=== PATIENT | female | born 1990 | race Caucasian/White ===

== ENCOUNTER 2018-03-06 15:01 | Observation (INO) ==
[2018-03-06] MEDS ORDERED: IOPAMIDOL 100 ML BOTTLE IV ONE (15:02)
[2018-03-06] MEDS ORDERED: 0.9 % SODIUM CHLORIDE 1,000 ML IV ONE (15:08)
--- NOTE | 2018-03-06 15:28 | Emergency Department Note ---
Abdominal Pain HPI - General Chief Complaint: Abdominal Pain Stated Complaint: RLQ Abdominal Pain onset 529. Time Seen by Provider: 03/06/18 15:22 Source: patient Mode of arrival: ambulatory Limitations: no limitations - History of Present Illness HPI Narrative: 27-year-old female awoke this morning at 5:30 AM with right lower quadrant abdominal pain. Progressively getting worse since then. States it is worse with any movement, if she walks, or takes a deep breath. She has never had anything like this previously. She has nauseated. Tried to eat some lunch around 11:00 but could hardly eat. Her pain is a little bit better if she sits still or lays down. She presented to minor care but they were worried about appendicitis so they sent her to the ER. She has had a fever of 100 to 101 the last 7 or 8 hours since she woke up. No diarrhea. Last normal bowel movement was last night. No cough or cold symptoms. Denies pain anywhere else other than the right lower quadrant of the abdomen. Denies any dysuria or frequency. No vaginal drainage. - Related Data Home Medications Medication Instructions Recorded Confirmed omega-3 fatty acids 500 mg capsule 500 mg PO QDAY cap 02/23/15 03/06/18 Previous Rx's Medication Instructions Recorded nortriptyline 10 mg capsule 10 mg PO QHS #30 cap 11/01/15 levothyroxine 88 mcg tablet 88 mcg PO QDAY #30 tab 12/01/15 topiramate 25 mg tablet 50 mg PO BID #120 tab 04/05/16 cyclobenzaprine 5 mg tablet 10 mg PO HS #30 tab 09/05/17 Allergies Allergy/AdvReac Type Severity Reaction Status Date / Time leflunomide [From Arava] Allergy Unknown Nausea Verified 03/06/18 14:46 methotrexate Allergy Unknown Nausea Verified 03/06/18 14:46 Penicillins Allergy Unknown Hives Verified 03/06/18 14:46 Sulfa (Sulfonamide Allergy Unknown Rash Verified 03/06/18 14:46 Antibiotics) Review of Systems All systems ED: reviewed and negative except as stated. Abdominal Pain PMH - Past Medical History Medical history: Reports: other (Rheumatoid arthritis) Surgical history ED: Reports: orthopedic, other (2 foot surgeries), tonsillectomy - Social History Smoking status: Never smoker Alcohol use: Reports: Rarely Drug use: Reports: none Physical Exam Limitations: no limitations General appearance: alert, in no apparent distress Head: atraumatic, normocephalic, normal inspection Eye: Present: normal appearance. Absent: conjunctival injection ENT: mucous membranes moist Neck: Present: normal inspection, trachea midline. Absent: tenderness, lymphadenopathy Chest: Present: normal inspection, symmetric chest wall rise Respiratory: Present: normal lung sounds bilaterally. Absent: respiratory distress, wheezes, accessory muscle use Cardiovascular: Present: regular rate, normal heart sounds Abdominal: Present: soft, tenderness (RLQ and periumbilical), normal bowel sounds. Absent: distention, mass Extremities: Present: normal inspection Neurological: Present: alert, oriented X3, normal gait Psychiatric: Present: normal affect, normal mood Skin: Present: warm, dry, intact, normal color. Absent: rash, cyanosis, diaphoresis, erythema Course Course Narrative: At 1610 I did speak with Dr. Solis, surgeon on-call who is going to come see the patient. Vital Signs Temperature 100.0 F H 03/06/18 15:02 Pulse Rate 100 H 03/06/18 15:02 Respiratory Rate 18 03/06/18 15:02 Blood Pressure 135/92 03/06/18 15:02 Pulse Oximetry (%) 100 03/06/18 15:02 Temperature 100.0 F H 03/06/18 15:02 Pulse Rate 100 H 03/06/18 15:02 Respiratory Rate 18 03/06/18 15:02 Blood Pressure 135/92 03/06/18 15:02 Pulse Oximetry (%) 100 03/06/18 15:02 Abdominal Pain - Lab Data Result diagrams: 03/06/18 15:20 03/06/18 15:20 Lab Results 03/06/18 03/06/18 03/06/18 Range/Units 15:20 15:20 15:20 WBC 10.1 (4.5-11.0) K/mcL RBC 4.40 (4.00-5.20) M/mcL Hgb 12.6 (12.0-15.0) g/dL Hct 37.7 (36.0-48.0) % POC Hct 39.0 (36.0-48.0) % MCV 85.7 (80.0-100.0) fL MCH 28.7 (26.0-34.0) pg MCHC 33.6 (31.0-36.0) g/dL RDW 12.1 (11.5-14.5) % Plt Count 226 (140-440) K/mcL MPV 9.9 (7.4-10.4) fL Gran % 75.2 (38.0-78.0) % Lymph % (Auto) 22.1 (15.5-49.0) % [place] % (Auto) 0.4 L (1.0-12.0) % Eos % (Auto) 2.1 (0.0-7.0) % Baso % (Auto) 0.2 (0.0-2.0) % Gran # 7.6 (1.8-8.0) K/mcL Lymph # (Auto) 2.2 (1.5-4.8) K/mcL [place] # (Auto) 0 L (0.1-0.9) K/mcL Eos # (Auto) 0.2 (0.0-0.7) K/mcL Baso # (Auto) 0 (0.0-0.3) K/mcL VBG Lactic Acid 0.6 (0.5-2.2) mmol/L POC Sodium 141 (133-145) mmol/L Sodium 139 (133-145) mmol/L POC Potassium 3.4 (3.3-5.1) mmol/L Potassium 3.4 (3.3-5.1) mmol/L POC Chloride 106 (96-108) mmol/L Chloride 104 (96-108) mmol/L Carbon Dioxide 22 (22-30) mmol/L POC Total CO2 20 L (22-30) mmol/L Anion Gap 13.0 (8-16) POC BUN 9 (6-20) mg/dl BUN 10 (6-20) mg/dl Creatinine 0.9 (0.6-1.1) mg/dl POC Creatinine 0.8 (0.6-1.1) mg/dl GFR Calculation 88 Glucose 89 (70-105) mg/dL POC Glucose 90 (70-105) mg/dL Calcium 9.4 (8.6-10.4) mg/dl POC WB Ioniz Calcium 1.18 (1.16-1.32) mmol/L Total Bilirubin 0.3 (0.0-1.0) mg/dL AST 10 (0-37) U/l ALT 7 (0-40) U/l Alkaline Phosphatase 76 (39-117) U/L Total Protein 7.8 (5.9-8.4) gm/dL Albumin 4.3 (3.2-5.2) gm/dL Globulin 3.5 (2.2-3.7) gm/dL Albumin/Globulin Ratio 1.2 (1.0-2.3) Disposition Pt seen by MAINFRAME PROGRAMMER/PA only: Yes Clinical Impression: Appendicitis Disposition: Xfer As Inpt ([facility]) Condition: Fair Referrals: Kerry Mills ARNP [Primary Care Provider] - Michell Solis MD [Physician] - Time of Disposition: 16:13
[2018-03-06 15:51] LABS: Basophils # (Auto) 0 K/mcL (0.0-0.3); Basophils % (Auto) 0.2 % (0.0-2.0); Eosinophils # (Auto) 0.2 K/mcL (0.0-0.7); Eosinophils % (Auto) 2.1 % (0.0-7.0); Granulocytes % (Auto) 75.2 % (38.0-78.0); Lymphocytes # (Auto) 2.2 K/mcL (1.5-4.8); Lymphocytes % (Auto) 22.1 % (15.5-49.0); Mean Cell Volume 85.7 fL (80.0-100.0); Mean Corpuscular HGB Conc 33.6 g/dL (31.0-36.0); Mean Corpuscular Hemoglobin 28.7 pg (26.0-34.0); Monocytes # (Auto) 0 K/mcL (0.1-0.9); Monocytes % (Auto) 0.4 % (1.0-12.0); Platelet Count 226 K/mcL (140-440); Red Cell Distribution Width 12.1 % (11.5-14.5)
--- NOTE | 2018-03-06 16:06 | Cat Scan Report ---
CLINICAL INFORMATION: Right lower quadrant pain and fever COMPARISON: None. TECHNIQUE: Following enteric contrast, 80 cc of Isovue-300 were injected intravenously, and 60 seconds later, 0.625 mm helical slices were obtained from the mid heart through the subtrochanteric regions. Following reconstruction, 2.5 mm sagittal, coronal and axial reformatted images were processed and reviewed at bone, lung and soft tissue windows. Five minutes later, 0.625 mm helical slices were obtained from the mid heart through the kidneys and viewed at soft tissue windows.The exam was performed using radiation dose optimization techniques including, but not limited to, automated exposure control, adjustment of the mA and/or kV according to patient size and use of iterative reconstruction technique. FINDINGS: Lung bases show no abnormality - no effusion. Visualized heart is normal. Images through the abdomen show the gallbladder and bile ducts, liver, both kidneys, adrenal glands, spleen, pancreas and aorta, aortic branches be normal in size configuration and attenuation without focal lesion. Images should the pelvis show urinary bladder to be normal. Anteflexed uterus normal size 8 x 4 cm in IUD in proper positioned in the endometrial cavity. Both ovaries are normal the exception of a 2.4 cm simple cyst on the right ovary. The appendix is noted in the lateral pericecal region and is dilated with diameter 13 cm wall thickening and fluid in the periappendiceal fat. IMPRESSION: Acute appendicitis. Appendix is located in the lateral pericecal region. No abscess or complication Interpreted and Authenticated by: Austen Tilley 03/06/18
[2018-03-06 16:13] LABS: ALT/SGPT 7 U/l (0-40); Albumin 4.3 gm/dL (3.2-5.2); Albumin/Globulin Ratio 1.2 (1.0-2.3); Alkaline Phosphatase 76 U/L (39-117); Blood Urea Nitrogen 10 mg/dl (6-20)
[2018-03-06] MEDS ORDERED: ONDANSETRON 4 MG/2 ML VIAL IV ONE ×2 (16:19→17:55)
[2018-03-06] MEDS ORDERED: HYDROmorphone 2 MG/ML VIAL IV SCH (16:30)
[2018-03-06] MEDS ORDERED: ERTAPENEM 1 GM in 0.9 % SODIUM CHLORIDE 50 ML IV ONE (16:55)
[2018-03-06] MEDS ORDERED: 0.9 % SODIUM CHLORIDE 1,000 ML IV SCH (17:00)
--- NOTE | 2018-03-06 17:00 | General Surg History&Physical ---
History of Present Illness Patient information: Note initiated : 03/06/18 at 4:57 pm Service Date, if different from initiated Date: [] Patient: Eh Boyd a 27 y/o F admitted on for RLQ Abdominal Pain onset 529.. Chief Complaint: [Abdominal pain and nausea] HPI: Ms. Boyd is a 27 year old F was admitted with acute appendicitis. The patient had onset of sharp pain in right lower quadrant at 5:30 AM today. She developed increasing pain with bowel movement. She had nausea without vomiting. The pain continued throughout the day and she was finally seen in urgent care and referred to the emergency room. CT confirms acute appendicitis. Her white blood count is normal but she is on Remicade. Her last Remicade injection was 5 weeks ago. Review of Systems - Constitutional fatigue, weight gain - Gastrointestinal abdominal pain, heartburn, nausea - Musculoskeletal abnormal gait, arthralgias, joint swelling, myalgias, radiating pain into limb, stiffness - Psychiatric anxiety, depression - Hematologic/Lymphatic no easy bleeding, no easy bruising, no lymphadenopathy Past History Past medical history: Ankylosis spondylitis Hypertension Anxiety with depression Positive CECILE Past surgical history: Tonsillectomy Left foot surgery Bunionectomy Past family history: Depression Hypertension Brain neoplasm Carcinoma of cervix Diabetes mellitus Breast cancer Coronary artery disease Past social history: Negative tobacco Occasional alcohol use Denies drug use Employed Medications and Allergies Home Medications Medication Instructions Recorded Confirmed Type omega-3 fatty acids 500 mg capsule 500 mg PO QDAY cap 02/23/15 03/06/18 History nortriptyline 10 mg capsule 10 mg PO QHS #30 cap 11/01/15 03/06/18 Rx levothyroxine 88 mcg tablet 88 mcg PO QDAY #30 tab 12/01/15 03/06/18 Rx topiramate 25 mg tablet 50 mg PO BID #120 tab 04/05/16 03/06/18 Rx Allergies Allergy/AdvReac Type Severity Reaction Status Date / Time leflunomide [From Arava] Allergy Unknown Nausea Verified 03/06/18 14:46 methotrexate Allergy Unknown Nausea Verified 03/06/18 14:46 Penicillins Allergy Unknown Hives Verified 03/06/18 14:46 Sulfa (Sulfonamide Allergy Unknown Rash Verified 03/06/18 14:46 Antibiotics) Exam Temp Pulse Resp BP Pulse Ox 100.0 F H 89 13 135/92 100 03/06/18 15:02 03/06/18 16:15 03/06/18 16:15 03/06/18 16:15 03/06/18 16:15 - General physical appearance well developed, well nourished, moderate distress, obese - Eyes PERRL, normal ocular movement - ENT normal pinna, normal nares, normal mucosa, no hearing loss, no congestion - Head Head exam IM: Present: atraumatic, normocephalic - Neck no masses, no bruits, trachea midline, no lymphadectomy, no venous distension - Cardiovascular Cardiovascular exam IM: Present: normal rate and rhythm, RRR, +S1, +S2. Absent : gallop, JVD, systolic murmur, tachycardia - Respiratory normal expansion, normal respiratory effort, clear to percussion, clear to auscultation - Abdomen Abdomen: Present: soft, non tender, tender (right lower quadrant tenderness with active bowel sounds; no palpable mass), bowel sounds Hernia: Present: none - Genitourinary Present: normal external genitalia - Integumentary Present: no rash, no growths, no abnormal pigmentation - Neurologic Present: normal coordination, normal sensation - Musculoskeletal Present: normal gait, normal posture, other (exquisite tenderness with swelling left ankle and foot) - Psychiatric Present: oriented to time, oriented to person, oriented to place, speech is normal, memory intact Assessment and Plan (1) Acute appendicitis Status: Acute (2) Depressive disorder Patient counseled for laparoscopic appendectomy and it will be done later today. Preoperative Invanz has been ordered Status: Chronic Comment: 2011 Mild (3) Hypertension, essential Status: Chronic Comment: PIH during in 2011 (4) Hypothyroidism (acquired) Status: Chronic
[2018-03-06] MEDS ORDERED: SUCCINYLCHOLINE 20 MG/ML ML IV ONE (17:55)
[2018-03-06] MEDS ORDERED: PROPOFOL 200 MG/20 ML VIAL IV ONE (17:55)
[2018-03-06] MEDS ORDERED: GLYCOPYRROLATE 0.2 MG/ML VIAL IV ONE (17:55)
[2018-03-06] MEDS ORDERED: NEOSTIGMINE 1 MG/ML VIAL IV ONE (17:55)
[2018-03-06] MEDS ORDERED: LIDOCAINE HCL/PF 100 MG/5 ML SYRINGE IV ONE (17:55)
[2018-03-06] MEDS ORDERED: ROCURONIUM 10 MG/ML ML IV ONE (17:55)
[2018-03-06] MEDS ORDERED: fentaNYL 250 MCG/5 ML VIAL IV ONE (17:55)
[2018-03-06] MEDS ORDERED: KETAMINE 100 MG/ML ML IV ONE (17:55)
[2018-03-06] MEDS ORDERED: KETOROLAC 30 MG/ML VIAL IV ONE (17:55)
[2018-03-06] MEDS ORDERED: DEXAMETHASONE 10 MG/ML VIAL IV ONE (17:55)
[2018-03-06] MEDS ORDERED: MIDAZOLAM 2 MG/2 ML VIAL IV ONE (17:55)
[2018-03-06] MEDS ORDERED: BENZOCAINE/MENTHOL 1 LOZENGE PO PRN (18:41)
[2018-03-06] MEDS ORDERED: METHOCARBAMOL 1,000 MG/10 ML VIAL IV PRN (18:41)
[2018-03-06] MEDS ORDERED: MEPERIDINE 25 MG/ML SYRINGE IV PRN (18:41)
[2018-03-06] MEDS ORDERED: LACTATED RINGERS 250 ML IV PRN (18:41)
[2018-03-06] MEDS ORDERED: FLUMAZENIL 0.1 MG/ML ML IV PRN (18:41)
[2018-03-06] MEDS ORDERED: PROMETHAZINE 25 MG/ML VIAL IM PRN (18:41)
[2018-03-06] MEDS ORDERED: fentaNYL 100 MCG/2 ML VIAL IV PRN (18:41)
[2018-03-06] MEDS ORDERED: NALOXONE HCL 0.4 MG/ML VIAL IV PRN (18:41)
[2018-03-06] MEDS ORDERED: HYDROmorphone 2 MG/ML VIAL IV PRN (18:41)
[2018-03-06] MEDS ORDERED: ACETAMINOPHEN 1,000 MG/100 ML BOTTLE IV ONE (18:41)
[2018-03-06] MEDS ORDERED: ONDANSETRON 4 MG/2 ML VIAL IV PRN (18:41)
[2018-03-06] MEDS ORDERED: MEPERIDINE 50 MG/ML INJECTION IM PRN (18:41)
[2018-03-06] MEDS ORDERED: IPRATROPIUM/ALBUTEROL 3 ML AMPUL.NEB NEB PRN (18:41)
[2018-03-06] MEDS ORDERED: PROMETHAZINE 25 MG/ML VIAL IV PRN (18:41)
--- NOTE | 2018-03-06 18:43 | Brief Operative Note ---
Date of procedure: 03/06/18 Pre-op diagnosis: acute appendicitis Post-op diagnosis: other (acute appendicitis) Procedure: laparoscopic appendectomy Grafts/Implants: No Anesthesia: GETA Findings: acute suppurative appendicitis Complications: none Surgeon: Michell Solis Estimated blood loss (cc): 5 Specimens Removed/Pathology: other (appendix) Condition: stable Disposition: PACU
[2018-03-06] MEDS ORDERED: LACTATED RINGERS 1,000 ML IV SCH (18:45)
[2018-03-06] MEDS: 0.9 % SODIUM CHLORIDE 1,000 ML IV SCH ×2 (19:22→20:11)
[2018-03-06] MEDS: 0.9 % SODIUM CHLORIDE 10 ML SYRINGE IV SCH (20:08)
[2018-03-06] MEDS: NORTRIPTYLINE 10 MG CAPSULE PO SCH (20:32)
[2018-03-06] MEDS: TOPIRAMATE 25 MG TABLET PO SCH (20:32)
[2018-03-06] MEDS: HYDROmorphone 2 MG/ML VIAL IV PRN (22:12)
[2018-03-07] MEDS: HYDROmorphone 2 MG/ML VIAL IV PRN ×4 (02:39→20:18)
[2018-03-07] MEDS: ONDANSETRON 4 MG/2 ML VIAL IV PRN ×2 (02:39→09:06)
[2018-03-07] MEDS: ACETAMINOPHEN 1,000 MG/100 ML BOTTLE IV PRN ×3 (02:42→15:43)
[2018-03-07] MEDS: 0.9 % SODIUM CHLORIDE 10 ML SYRINGE IV SCH ×3 (05:08→22:18)
[2018-03-07 05:39] LABS: Basophils # (Auto) 0 K/mcL (0.0-0.3); Basophils % (Auto) 0.1 % (0.0-2.0); Eosinophils # (Auto) 0 K/mcL (0.0-0.7); Eosinophils % (Auto) 0.1 % (0.0-7.0); Granulocytes % (Auto) 90.5 % (38.0-78.0); Lymphocytes # (Auto) 0.7 K/mcL (1.5-4.8); Lymphocytes % (Auto) 9.2 % (15.5-49.0); Mean Cell Volume 85.5 fL (80.0-100.0); Mean Corpuscular HGB Conc 34.8 g/dL (31.0-36.0); Mean Corpuscular Hemoglobin 29.8 pg (26.0-34.0); Monocytes # (Auto) 0 K/mcL (0.1-0.9); Monocytes % (Auto) 0.1 % (1.0-12.0); Platelet Count 206 K/mcL (140-440); RBC 3.17 M/mcL (4.00-5.20); Red Cell Distribution Width 12.1 % (11.5-14.5)
--- NOTE | 2018-03-07 07:14 | Operative Note ---
DATE OF OPERATION: 03/06/2018 PREOPERATIVE DIAGNOSIS: Acute appendicitis. POSTOPERATIVE DIAGNOSIS: Acute appendicitis. PROCEDURE: Laparoscopic appendectomy. SURGEON: Michell Solis MD FINDINGS: Acute suppurative appendicitis. DESCRIPTION OF PROCEDURE: Under general anesthesia, the patient's abdomen was prepped and draped in the sterile field. A time-out procedure was carried out as per protocol. Supraumbilical incision was made and Veress needle was inserted. After adequate positioning, the abdomen was insufflated with 3 liters of CO2. A 12 mm port was placed. Laparoscope was placed. Under videoscopic guidance, a 5 mm port was placed in the suprapubic midline and a 12 mm port was placed in the left lower quadrant. The patient was placed in deep Trendelenburg position and rotated to the left. At the base of the cecum suppurative inflamed appendix was noted. The appendix was grasped with a self-retaining grasper. There was minimal mesoappendix so the appendix and mesoappendix were transected using the Endo-ADRIAN stapler and a single fire. The appendix was placed in an EndoCatch device and retrieved. There was no bleeding. Irrigating fluid was clear. CO2 was allowed to escape from the abdomen and the ports were removed. Fascia at the umbilicus was closed with interrupted 0 Vicryl. Skin incisions were closed with geo. Tegaderm dressings were placed. The patient was awakened from anesthesia uneventfully, transferred to a bed and taken to the postanesthetic care unit in stable, satisfactory condition. LCS:harshad Job ID: [id number] Doc ID: [id number] Michell Solis M.D.
[2018-03-07] MEDS: PANTOPRAZOLE 40 MG VIAL IV SCH ×2 (07:23→17:01)
[2018-03-07] MEDS: TOPIRAMATE 25 MG TABLET PO SCH ×2 (09:07→20:24)
[2018-03-07] MEDS: LEVOTHYROXINE 88 MCG TABLET PO SCH (09:07)
[2018-03-07] MEDS: 0.9 % SODIUM CHLORIDE 1,000 ML IV SCH ×2 (09:25→22:17)
[2018-03-07] MEDS ORDERED: PROMETHAZINE 25 MG/ML VIAL IV PRN (12:14)
--- NOTE | 2018-03-07 13:31 | XRay Report ---
CLINICAL INFORMATION: Postop appendicitis - abdominal pain COMPARISON: Abdomen and pelvic CT - 03/06/2018. FINDINGS: Mild ileus pattern is noted. Small amounts of free air noted in the subdiaphragmatic regions and throughout the peritoneal cavity - as expected in the immediate postoperative period. No soft tissue mass, pathologic calcification or organomegaly. IUD in expected location in the true pelvis IMPRESSION: Mild ileus and small amounts of free air - as expected immediate postoperative period Interpreted and Authenticated by: Austen Tilley 03/07/18
--- NOTE | 2018-03-07 16:02 | General Surgery Progress Note ---
Subjective Patient reports: still having pain, no flatus, no bowel movement, nausea, vomiting, afebrile Narrative: Note initiated : 03/07/18 at 3:58 pm Service Date, if different from initiated Date: [] Patient: Eh Boyd 27 y/o F admitted on for RLQ Abdominal Pain onset 529.. Chief Complaint: [Patient states that she has had some bilateral shoulder pain and mid abdominal pain. She has also had some nausea with vomiting. She has not had flatus or bowel movement. She has been afebrile and she has not had tachycardia. Pulse rate average is about 80 ;white blood count is 8.1. Abdominal x-ray shows subphrenic air which is anticipated on the first postoperative day post laparoscopy. Her antibiotic was switched from Zofran to promethazine and her nausea is improved. It has been decided that she will be observed overnight since she has not been able to keep liquids down.] Objective Temp Pulse Resp BP Pulse Ox 98.2 F 76 9 L 120/66 100 03/07/18 12:00 03/07/18 13:48 03/07/18 13:48 03/07/18 13:48 03/07/18 13:48 - Additional Data Intake & Output - Last 24 hours: Intake & Output 03/05/18 03/06/18 03/07/18 03/08/18 05:59 05:59 05:59 05:59 Intake Total 2950 / 2950 1092 / 1092 Output Total 910 / 910 1075 / 1075 Balance 2039 / 2039 Weight 198 lb - General physical appearance well developed, well nourished, moderate distress, severe distress, moderate pain, obese - Eyes PERRL, normal ocular movement - ENT normal pinna, normal nares, normal mucosa, no hearing loss, no congestion - Neck no masses, no bruits, trachea midline, no lymphadectomy, no venous distension - Respiratory normal expansion, normal respiratory effort, clear to percussion, clear to auscultation - Cardiovascular Cardiovascular exam: Present: normal rate and rhythm, RRR, +S1, +S2. Absent: JVD, tachycardia - Abdomen tender (tenderness around the operative sites in the lower abdomen; hypoactive bowel sounds; no abdominal distention) - Integumentary no rash, no growths, no abnormal pigmentation - Neurologic normal coordination, normal sensation - Musculoskeletal normal gait, normal posture - Psychiatric oriented to time, oriented to person, oriented to place, speech is normal, memory intact - Labs 03/07/18 04:46 03/06/18 15:20 Diabetes panel 03/06/18 Range/Units 15:20 Sodium 139 (133-145) mmol/L Potassium 3.4 (3.3-5.1) mmol/L Chloride 104 (96-108) mmol/L Carbon Dioxide 22 (22-30) mmol/L BUN 10 (6-20) mg/dl Creatinine 0.9 (0.6-1.1) mg/dl Glucose 89 (70-105) mg/dL Calcium 9.4 (8.6-10.4) mg/dl AST 10 (0-37) U/l ALT 7 (0-40) U/l Alkaline Phosphatase 76 (39-117) U/L Total Protein 7.8 (5.9-8.4) gm/dL Albumin 4.3 (3.2-5.2) gm/dL Calcium panel 03/06/18 Range/Units 15:20 Calcium 9.4 (8.6-10.4) mg/dl Albumin 4.3 (3.2-5.2) gm/dL Pituitary panel 03/06/18 Range/Units 15:20 Sodium 139 (133-145) mmol/L Potassium 3.4 (3.3-5.1) mmol/L Chloride 104 (96-108) mmol/L Carbon Dioxide 22 (22-30) mmol/L BUN 10 (6-20) mg/dl Creatinine 0.9 (0.6-1.1) mg/dl Glucose 89 (70-105) mg/dL Calcium 9.4 (8.6-10.4) mg/dl Adrenal panel 03/06/18 Range/Units 15:20 Sodium 139 (133-145) mmol/L Potassium 3.4 (3.3-5.1) mmol/L Chloride 104 (96-108) mmol/L Carbon Dioxide 22 (22-30) mmol/L BUN 10 (6-20) mg/dl Creatinine 0.9 (0.6-1.1) mg/dl Glucose 89 (70-105) mg/dL Calcium 9.4 (8.6-10.4) mg/dl Total Bilirubin 0.3 (0.0-1.0) mg/dL AST 10 (0-37) U/l ALT 7 (0-40) U/l Alkaline Phosphatase 76 (39-117) U/L Total Protein 7.8 (5.9-8.4) gm/dL Albumin 4.3 (3.2-5.2) gm/dL Assessment and Plan (1) Acute appendicitis Status: Acute Assessment and plan: Stable except for postoperative ileus with nausea and vomiting Continue on observation status until tomorrow Current Visit: Yes (2) Depressive disorder Problem details: 2011 Mild Status: Chronic Current Visit: No (3) Hypertension, essential Problem details: PIH during in 2012 Status: Chronic Current Visit : No (4) Hypothyroidism (acquired) Status: Chronic Current Visit: No - Time Spent With Patient Total time spent is greater than 50% in coordination of care (as documented) at patient's floor/unit and/or counseling patient:
[2018-03-07] MEDS ORDERED: MEPERIDINE 25 MG/ML SYRINGE IV PRN (16:07)
[2018-03-07] MEDS ORDERED: ERTAPENEM 1 GM VIAL IM SCH (16:15)
[2018-03-07] MEDS: ERTAPENEM 1 GM in 0.9 % SODIUM CHLORIDE 50 ML IV SCH (17:01)
[2018-03-07] MEDS: NORTRIPTYLINE 10 MG CAPSULE PO SCH (20:20)
[2018-03-08] MEDS: 0.9 % SODIUM CHLORIDE 1,000 ML IV SCH ×3 (02:21→16:30)
[2018-03-08] MEDS: 0.9 % SODIUM CHLORIDE 10 ML SYRINGE IV SCH ×3 (04:36→21:05)
[2018-03-08 06:41] LABS: Basophils # (Auto) 0 K/mcL (0.0-0.3); Basophils % (Auto) 0.5 % (0.0-2.0); Eosinophils # (Auto) 0.1 K/mcL (0.0-0.7); Eosinophils % (Auto) 1.8 % (0.0-7.0); Granulocytes % (Auto) 57.3 % (38.0-78.0); Lymphocytes # (Auto) 2.3 K/mcL (1.5-4.8); Mean Cell Volume 86.4 fL (80.0-100.0); Mean Corpuscular HGB Conc 34.3 g/dL (31.0-36.0); Mean Corpuscular Hemoglobin 29.6 pg (26.0-34.0); Monocytes # (Auto) 0 K/mcL (0.1-0.9); Monocytes % (Auto) 0.4 % (1.0-12.0); Platelet Count 165 K/mcL (140-440); RBC 2.65 M/mcL (4.00-5.20); Red Cell Distribution Width 12.6 % (11.5-14.5)
[2018-03-08] MEDS: PANTOPRAZOLE 40 MG VIAL IV SCH ×2 (07:37→16:36)
[2018-03-08] MEDS: LEVOTHYROXINE 88 MCG TABLET PO SCH (07:38)
[2018-03-08 07:56] LABS: ALT/SGPT < 5 U/l (0-40); Albumin 3.1 gm/dL (3.2-5.2); Albumin/Globulin Ratio 1.3 (1.0-2.3); Alkaline Phosphatase 52 U/L (39-117); Bilirubin,Direct < 0.2 mg/dL (0.0-0.3); Blood Urea Nitrogen 9 mg/dl (6-20); Gamma Glutamyl Transpeptidase 8 U/L (5-36); Uric Acid 4.6 mg/dL (2.5-8.0)
[2018-03-08] MEDS: ACETAMINOPHEN 1,000 MG/100 ML BOTTLE IV PRN (07:58)
[2018-03-08] MEDS: TOPIRAMATE 25 MG TABLET PO SCH ×2 (08:25→20:21)
[2018-03-08] MEDS: ERTAPENEM 1 GM in 0.9 % SODIUM CHLORIDE 50 ML IV SCH (08:26)
[2018-03-08] MEDS ORDERED: oxyCODONE/APAP 5/325MG TABLET PO PRN (09:45)
[2018-03-08] MEDS ORDERED: 0.9 % SODIUM CHLORIDE 250 ML IV SCH ×2 (10:00→14:52)
[2018-03-08 10:52] LABS: Basophils # (Auto) 0 K/mcL (0.0-0.3); Basophils % (Auto) 0.5 % (0.0-2.0); Eosinophils # (Auto) 0.1 K/mcL (0.0-0.7); Eosinophils % (Auto) 2.1 % (0.0-7.0); Granulocytes % (Auto) 59.9 % (38.0-78.0); Lymphocytes # (Auto) 2.1 K/mcL (1.5-4.8); Lymphocytes % (Auto) 37.1 % (15.5-49.0); Mean Cell Volume 86.2 fL (80.0-100.0); Mean Corpuscular HGB Conc 34.2 g/dL (31.0-36.0); Mean Corpuscular Hemoglobin 29.5 pg (26.0-34.0); Monocytes # (Auto) 0 K/mcL (0.1-0.9); Monocytes % (Auto) 0.4 % (1.0-12.0); Platelet Count 179 K/mcL (140-440); RBC 2.77 M/mcL (4.00-5.20); Red Cell Distribution Width 12.4 % (11.5-14.5)
--- NOTE | 2018-03-08 11:25 | Cat Scan Report ---
CLINICAL INFORMATION: Two days postop appendectomy. Decreasing hemoglobin. COMPARISON: Preoperative abdomen and pelvic CT - 03/06/2018. TECHNIQUE: Following enteric contrast, 80 cc of Isovue-300 were injected intravenously, and 60 seconds later, 0.625 mm helical slices were obtained from the mid heart through the subtrochanteric regions. Following reconstruction, 2.5 mm sagittal, coronal and axial reformatted images were processed and reviewed at bone, lung and soft tissue windows. Five minutes later, 0.625 mm helical slices were obtained from the mid heart through the kidneys and viewed at soft tissue windows.The exam was performed using radiation dose optimization techniques including, but not limited to, automated exposure control, adjustment of the mA and/or kV according to patient size and use of iterative reconstruction technique. FINDINGS: Lung bases show small bilateral pleural effusions and mild bibasilar subsegmental atelectasis. The visualized heart is normal. Images through the abdomen show the gallbladder and bile ducts, liver, both kidneys, adrenal glands, spleen, pancreas and aorta, including aortic branches, are normal in size configuration, and attenuation without focal lesion. Images through the pelvis show the uterus appears normal in size configuration. Both ovaries are normal. Urinary bladder is unremarkable. There is a moderate free intraperitoneal air within the abdomen and pelvis, as expected, in the immediate postoperative period. Moderate acute hematoma, spanning 20 x 5 cm, is seen in the lateral pericecal region. This measures 60 Hounsfield units. Moderate free intraperitoneal fluid, compatible with hemorrhage admixed with simple fluid, is seen in the perisplenic, perihepatic and pelvic regions. Bone windows show no osseous abnormality. IMPRESSION: 1. 20 x 5 cm hematoma in the lateral pericecal region. There is also moderate mixed hemoperitoneum with simple fluid within the upper abdomen and pelvis. Case discussed with Dr. Solis - patient will return to the OR 2. Moderate intraperitoneal gas - as expected in the immediate postoperative period 3. Small bilateral pleural effusions and minor bibasilar atelectasis. Interpreted and Authenticated by: Austen Tilley 03/08/18
[2018-03-08] MEDS ORDERED: PROPOFOL 200 MG/20 ML VIAL IV ONE (12:15)
[2018-03-08] MEDS ORDERED: GLYCOPYRROLATE 0.2 MG/ML VIAL IV ONE (12:15)
[2018-03-08] MEDS ORDERED: LIDOCAINE HCL/PF 100 MG/5 ML SYRINGE IV ONE (12:15)
[2018-03-08] MEDS ORDERED: fentaNYL 250 MCG/5 ML VIAL IV ONE (12:15)
[2018-03-08] MEDS ORDERED: MIDAZOLAM 5 MG/5 ML VIAL ONE (12:15)
[2018-03-08] MEDS ORDERED: DEXAMETHASONE 10 MG/ML VIAL ONE (12:15)
[2018-03-08] MEDS ORDERED: ONDANSETRON 4 MG/2 ML VIAL ONE (12:15)
[2018-03-08] MEDS ORDERED: NEOSTIGMINE 1 MG/ML VIAL ONE (12:15)
[2018-03-08] MEDS ORDERED: ACETAMINOPHEN 1,000 MG/100 ML BOTTLE IV ONE (13:12)
[2018-03-08] MEDS ORDERED: NALOXONE HCL 0.4 MG/ML VIAL IV PRN (13:12)
[2018-03-08] MEDS ORDERED: FLUMAZENIL 0.1 MG/ML ML IV PRN (13:12)
[2018-03-08] MEDS ORDERED: PROMETHAZINE 25 MG/ML VIAL IV PRN ×2 (13:12→14:52)
[2018-03-08] MEDS ORDERED: HYDROmorphone 2 MG/ML VIAL IV PRN (13:12)
[2018-03-08] MEDS ORDERED: ONDANSETRON 4 MG/2 ML VIAL IV PRN (13:12)
[2018-03-08] MEDS ORDERED: BENZOCAINE/MENTHOL 1 LOZENGE PO PRN (13:12)
[2018-03-08] MEDS ORDERED: fentaNYL 100 MCG/2 ML VIAL IV PRN (13:12)
[2018-03-08] MEDS ORDERED: diphenhydrAMINE 50 MG/ML VIAL IV PRN (13:12)
[2018-03-08] MEDS ORDERED: LACTATED RINGERS 250 ML IV PRN (13:12)
[2018-03-08] MEDS ORDERED: IPRATROPIUM/ALBUTEROL 3 ML AMPUL.NEB NEB PRN (13:12)
[2018-03-08] MEDS ORDERED: LACTATED RINGERS 1,000 ML IV SCH (13:15)
--- NOTE | 2018-03-08 13:39 | General Surgery Progress Note ---
Subjective Narrative: Note initiated : 03/08/18 at 1:39 pm Service Date, if different from initiated Date: [] Patient: Eh Boyd 27 y/o F admitted on for RLQ Abdominal Pain onset 529.. Chief Complaint: [] Objective Temp Pulse Resp BP Pulse Ox 98.1 F 88 14 126/80 100 03/08/18 10:58 03/08/18 10:58 03/08/18 10:58 03/08/18 10:58 03/08/18 10:58 - Additional Data Intake & Output - Last 24 hours: Intake & Output 03/06/18 03/07/18 03/08/18 03/09/18 05:59 05:59 05:59 05:59 Intake Total 2950 / 2950 3092 / 3092 100 / 100 Output Total 910 / 910 1770 / 1770 1500 / 1500 Balance 2040 / 2040 1322 / 1322 -1400 / -1400 Weight 198 lb - Labs 03/08/18 10:01 03/08/18 04:54 Diabetes panel 03/08/18 Range/Units 04:54 Sodium 141 (133-145) mmol/L Potassium 3.4 (3.3-5.1) mmol/L Chloride 109 H (96-108) mmol/L Carbon Dioxide 21 L (22-30) mmol/L BUN 9 (6-20) mg/dl Creatinine 0.6 (0.6-1.1) mg/dl Glucose 80 (70-105) mg/dL Calcium 8.2 L (8.6-10.4) mg/dl AST 8 (0-37) U/l ALT < 5 (0-40) U/l Alkaline Phosphatase 52 (39-117) U/L Total Protein 5.5 L (5.9-8.4) gm/dL Albumin 3.1 L (3.2-5.2) gm/dL Triglycerides 62 (<150) mg/dl Calcium panel 03/08/18 Range/Units 04:54 Calcium 8.2 L (8.6-10.4) mg/dl Phosphorus 2.2 L (2.7-4.5) mg/dL Albumin 3.1 L (3.2-5.2) gm/dL Pituitary panel 03/08/18 Range/Units 04:54 Sodium 141 (133-145) mmol/L Potassium 3.4 (3.3-5.1) mmol/L Chloride 109 H (96-108) mmol/L Carbon Dioxide 21 L (22-30) mmol/L BUN 9 (6-20) mg/dl Creatinine 0.6 (0.6-1.1) mg/dl Glucose 80 (70-105) mg/dL Calcium 8.2 L (8.6-10.4) mg/dl Adrenal panel 03/08/18 Range/Units 04:54 Sodium 141 (133-145) mmol/L Potassium 3.4 (3.3-5.1) mmol/L Chloride 109 H (96-108) mmol/L Carbon Dioxide 21 L (22-30) mmol/L BUN 9 (6-20) mg/dl Creatinine 0.6 (0.6-1.1) mg/dl Glucose 80 (70-105) mg/dL Calcium 8.2 L (8.6-10.4) mg/dl Total Bilirubin 0.2 (0.0-1.0) mg/dL AST 8 (0-37) U/l ALT < 5 (0-40) U/l Alkaline Phosphatase 52 (39-117) U/L Total Protein 5.5 L (5.9-8.4) gm/dL Albumin 3.1 L (3.2-5.2) gm/dL Assessment and Plan (1) Acute appendicitis Status: Acute Assessment and plan: Stable except for postoperative ileus with nausea and vomiting Continue on observation status until tomorrow Current Visit: Yes (2) Depressive disorder Problem details: 2011 Mild Status: Chronic Current Visit: No (3) Hypertension, essential Problem details: PIH during in 2011 Status: Chronic Current Visit : No (4) Hypothyroidism (acquired) Status: Chronic Current Visit: No - Time Spent With Patient Total time spent is greater than 50% in coordination of care (as documented) at patient's floor/unit and/or counseling patient:
--- NOTE | 2018-03-08 13:42 | Brief Operative Note ---
Date of procedure: 03/08/18 Pre-op diagnosis: post operative bleeding Post-op diagnosis: other (bleeding from staple line of mesoappendix) Procedure: exploratory laparotomy and control of bleeding from mesoappendix Grafts/Implants: No Anesthesia: GETA Findings: bLEEDING FROM STAPLE LINE OF MESOAPPENDIX Complications: none Surgeon: Michell Solis Estimated blood loss (cc): 20 Specimens Removed/Pathology: none sent Condition: stable Disposition: PACU
[2018-03-08] MEDS: MEPERIDINE 25 MG/ML SYRINGE IV PRN ×2 (14:06→14:08)
--- NOTE | 2018-03-08 14:36 | Surgical Pathology Report ---
HISTOLOGY SPECIMEN MICROSCOPIC DIAGNOSIS APPENDIX, APPENDECTOMY: -- ACUTE APPENDICITIS WITH SEROSITIS. (EBD:djf) PROCEDURAL IMPRESSION Appendicitis. GROSS DESCRIPTION Received in formalin labeled with the patient information, is a 4.7 cm long by up to 1.2 cm in diameter pale pink-hunter appendix with 1.3 cm of attached yellow-hunter adipose tissue. There is a thickened white-hunter possible exudate throughout the surface. The margin is stapled closed and the staple line continues approximately 1.2 cm into the attached fat. The lumen is pinpoint. Grossly no perforations are identified. Thaw Shed Heater Tender sections submitted - one cassette. (STS:sln) Electronically Signed by: Tasha Gates M.D.
[2018-03-08] MEDS ORDERED: ACETAMINOPHEN 1,000 MG/100 ML BOTTLE IV PRN (14:52)
[2018-03-08] MEDS ORDERED: MEPERIDINE 25 MG/ML SYRINGE IV PRN (14:52)
[2018-03-08] MEDS: HYDROmorphone 2 MG/ML VIAL IV PRN ×2 (16:26→19:04)
[2018-03-08] MEDS: oxyCODONE/APAP 5/325MG TABLET PO PRN (19:05)
[2018-03-08] MEDS ORDERED: NORTRIPTYLINE 10 MG CAPSULE PO SCH (21:00)
[2018-03-09] MEDS: oxyCODONE/APAP 5/325MG TABLET PO PRN ×2 (03:24→09:10)
[2018-03-09] MEDS: HYDROmorphone 2 MG/ML VIAL IV PRN (04:50)
[2018-03-09] MEDS: 0.9 % SODIUM CHLORIDE 10 ML SYRINGE IV SCH (04:51)
[2018-03-09] MEDS: 0.9 % SODIUM CHLORIDE 1,000 ML IV SCH (05:18)
[2018-03-09 06:49] LABS: ALT/SGPT < 5 U/l (0-40); Albumin 3.3 gm/dL (3.2-5.2); Albumin/Globulin Ratio 1.1 (1.0-2.3); Alkaline Phosphatase 58 U/L (39-117); Bilirubin,Direct < 0.2 mg/dL (0.0-0.3); Blood Urea Nitrogen 5 mg/dl (6-20); Gamma Glutamyl Transpeptidase 10 U/L (5-36); Uric Acid 4.7 mg/dL (2.5-8.0)
[2018-03-09 06:50] LABS: Basophils # (Auto) 0 K/mcL (0.0-0.3); Basophils % (Auto) 0.2 % (0.0-2.0); Eosinophils # (Auto) 0 K/mcL (0.0-0.7); Eosinophils % (Auto) 0.2 % (0.0-7.0); Granulocytes % (Auto) 81.7 % (38.0-78.0); Lymphocytes # (Auto) 1.6 K/mcL (1.5-4.8); Lymphocytes % (Auto) 17.4 % (15.5-49.0); Mean Cell Volume 86.6 fL (80.0-100.0); Mean Corpuscular HGB Conc 34.3 g/dL (31.0-36.0); Mean Corpuscular Hemoglobin 29.7 pg (26.0-34.0); Monocytes # (Auto) 0 K/mcL (0.1-0.9); Monocytes % (Auto) 0.5 % (1.0-12.0); Platelet Count 182 K/mcL (140-440); RBC 2.91 M/mcL (4.00-5.20); Red Cell Distribution Width 12.1 % (11.5-14.5)
[2018-03-09] MEDS: PANTOPRAZOLE 40 MG VIAL IV SCH (07:00)
[2018-03-09] MEDS ORDERED: LEVOTHYROXINE 88 MCG TABLET PO SCH (07:30)
[2018-03-09] MEDS ORDERED: ERTAPENEM 1 GM in 0.9 % SODIUM CHLORIDE 50 ML IV SCH (09:00)
[2018-03-09] MEDS: TOPIRAMATE 25 MG TABLET PO SCH (09:06)
--- NOTE | 2018-03-09 12:18 | Discharge Summary ---
Providers - Providers Patient information: Note initiated : 03/09/18 at 12:14 pm Service Date, if different from initiated Date: [] Patient: Eh Boyd 27 y/o F admitted on 03/07/18 for RLQ Abdominal Pain onset 529.. Chief Complaint: [] Date of admission: 03/06/18 Discharge date: 03/09/18 Attending physician: Michell Solis Hospitalization Hospital course: 27-year-old female admitted on 06 March with right-sided abdominal pain with nausea and vomiting. She was seen and CT revealed acute appendicitis. She was admitted and underwent laparoscopic appendectomy on 06 March. Surgery went uneventfully however wanted to this was noted that her hemoglobin was found 9.4. She also had evidence of mild ileus with bilateral shoulder pain. Plain films only shown subphrenic area which was anticipated after the laparoscopic surgery. On the morning of 08 March hemoglobin 7.[address] was done which showed a large pericecal hematoma with fluid over the liver. An urgent laparotomy was done and she was found to have a large hematoma at the base of the cecum with a visible pulsatile small bleeder in the mesoappendix with the staple line was disrupted. The staple across the appendix was intact. The hematoma was evacuated and the area was irrigated. The vessel was oversewn and the entire mesoappendix was oversewn for assurance. The drain was placed and she had only 40 cc of drainage over the past 12 hours. Her hemoglobin is 8.6 and the patient feels well. She is tolerating a diet and her pain is controlled with oral medications. She is therefore discharged home and will have follow-up in the office in 2 weeks. Discharge diagnosis: acute appendicitis Secondary discharge diagnosis: Postoperative bleeding Postoperative hemorrhagic anemia Reason for admission: abdominal pain nausea and vomiting Procedures: 06 March-- LAPAROSCOPIC appendectomy 08 March-- EXPLORATORY laparotomy with oversewing of bleeder in meso-appendix Pertinent studies/significant findings: CT of abdomen and pelvis with IV contrast Complications: Disruption of staple line of the mesoappendix with bleeding Exam Temp Pulse Resp BP Pulse Ox 98.7 F 93 H 16 118/74 98 03/09/18 12:07 03/09/18 12:07 03/09/18 12:07 03/09/18 12:03/09/18 12:07 - General physical appearance well developed, well nourished, no distress - Eyes PERRL, normal ocular movement - ENT normal pinna, normal nares, normal mucosa, no hearing loss, no congestion - Head Head exam IM: Present: atraumatic, normocephalic - Neck no masses, no bruits, trachea midline, no lymphadectomy, no venous distension - Cardiovascular Cardiovascular exam IM: Present: normal rate and rhythm - Respiratory normal expansion, normal respiratory effort, clear to percussion, clear to auscultation - Abdomen Abdomen: Present: soft, tender (mild tenderness around lower midline incision and port sites), bowel sounds Hernia: Present: none - Genitourinary Present: normal external genitalia - Integumentary Present: no rash, no growths, no abnormal pigmentation - Neurologic Present: normal coordination, normal sensation - Musculoskeletal Present: normal gait, normal posture - Psychiatric Present: oriented to time, oriented to person, oriented to place, speech is normal, memory intact Discharge Plan - Patient/Caregiver Discharge Instructions Activity: increase activity as tolerated Diet: Regular Diet Additional Instructions: Leave dressing intact until follow-up appointment. You may shower starting tomorrow. Do not use soap, lotion, or cream over the top of the dressing. Let water run over dressings, but do not scrub. Pat dry. Empty canister of drain once daily and recharge - Follow up Plan Follow up with: Michell Solis MD [Physician] - Kerry Mills ARNP [Primary Care Provider] - Disposition: Home, Self-Care Prognosis: Good Rehab Potential: Good I certify that the patient requires SNF services.: No Overall status at discharge: patient is not back to baseline Pending Studies Resuscitation Status Full Code Diet Regular Diet Start Sat Mar 09 820 Hydromorphone HCl (Dilaudid) 1 mg IV Q2HP PRN PRN Reason: PAIN LEVEL > 6 Last Admin: 03/09/18 04:50 Dose: 1 mg Admin: 03/08/18 19:04 Dose: 1 mg Admin: 03/08/18 16:26 Dose: 1 mg Ertapenem 1 gm/ Sodium (Chloride) 50 mls @ 100 mls/hr IV Q24H JACKIE Last Admin: 03/09/18 09:06 Dose: 100 mls/hr Sodium Chloride (Sodium Chloride 0.9%) 1,000 mls @ 75 mls/hr IV .[id number] [facility] Last Admin: 03/09/18 05:18 Dose: Not Given Admin: 03/08/18 16:30 Dose: 75 mls/hr Acetaminophen (Ofirmev) 1,000 mg in 100 mls @ 200 mls/hr IV Q6HP PRN PRN Reason: Pain Last Infusion: 03/08/18 21:05 Dose: 0 mls/hr Admin: 03/08/18 20:35 Dose: 200 mls/hr Levothyroxine Sodium (Synthroid) 88 mcg PO QAMAC [facility] Last Admin: 03/09/18 07:01 Dose: 88 mcg Nortriptyline HCl (Pamelor) 10 mg PO QHS [facility] Last Admin: 03/08/18 20:20 Dose: 10 mg Oxycodone/Acetaminophen (Percocet 5-325 Mg) 1 tab PO Q4HP PRN PRN Reason: PAIN LEVEL 3-6 Last Admin: 03/09/18 09:10 Dose: 1 tab Admin: 03/09/18 03:24 Dose: 1 tab Admin: 03/08/18 19:05 Dose: 1 tab Pantoprazole Sodium (Protonix) 40 mg IV BIDAC [facility] Last Admin: 03/09/18 07:00 Dose: 40 mg Admin: 03/08/18 16:36 Dose: 40 mg Sodium Chloride (Saline Flush) 10 ml IV Q8 [facility] Last Admin: 03/09/18 04:51 Dose: 10 ml Admin: 03/08/18 21:05 Dose: 10 ml Topiramate (Topamax) 50 mg PO BID [facility] Last Admin: 03/09/18 09:06 Dose: 50 mg Admin: 03/08/18 20:21 Dose: 50 mg Shift Summary 03/09/18 03:49 Shift Summary by Grace Vila&Ox4. VSS. Medicated for pain with 1 mg IV dilaudid x 1, 1 gram IV tylenol x 1 and 5mg PO percocet x 2 through night. CHRISTIAN drain to mid abdominal wound patent with output of 40cc. Lap appy wounds covered with film dressing which are intact with minimal drainage. IV to right hand running NS 0.9% at 75mls/Hr. IV to left hand SL. No nausea tonight and tolerating full liquid diet. Up to bathroom with SBA and urinating well. No BM yet, reports passing gas. Tolerated ambulation of approx. 100 feet with SBA. Initialized on 03/09/18 03:49 - END OF NOTE
--- NOTE | 2018-03-20 14:32 | Operative Note ---
DATE OF OPERATION: 03/08/2018 PREOPERATIVE DIAGNOSIS: Postoperative bleeding. POSTOPERATIVE DIAGNOSIS: Bleeding from staple line of the mesoappendix. PROCEDURE: Exploratory laparotomy with evacuation of clot and control of bleeding from the mesoappendix. SURGEON: Michell Solis M.D. FINDINGS: Bleeding from the staple line of the mesoappendix. DESCRIPTION: Under general anesthesia, the patient's abdomen was prepped and draped in the sterile field. It was elected to explore the abdomen open. A limited lower midline incision was made and extended through the fascia into the peritoneum. There was some fresh blood and old blood encountered. The small bowel was pulled from the peritoneal cavity and at the base of the cecum, there was a very large clot. This clot was removed and placed in a basin. Irrigation in the area revealed a pulsatile bleeder in the mesoappendix through the staple line. This was controlled with two sutures of 2-0 Monocryl suture. The rest of the mesoappendix was imbricated using the same 2-0 Monocryl suture. Irrigation was carried out without difficulty. The appendiceal stump was unremarkable, and there was no bleeding from the stump. Irrigation of the upper abdomen was carried out. Since there was some residual blood, it was elected to place a 7-Marcelo drain. It was brought out through a separate incision. Sponge, needle, instrument, and blade counts were verified as correct. The peritoneum and fascia was closed with a running #1 Prolene. Subcutaneous tissue was closed with 2-0 Monocryl running. Skin was closed with geo. The patient tolerated the procedure well. Dressings were placed. She was awakened and transferred to the postanesthetic care unit in stable, satisfactory condition. LCS:jose Job ID: [id number] Doc ID: [id number] Michell Solis M.D.
== END 2018-03-09 13:05 | disposition home or self-care (01) ==
LOC: ED 15:01 → SUR 17:45 → MEDSUR 17:45
PROVIDERS: ADMIT Family Medicine Adult Medicine; ATTEND Family Medicine Adult Medicine
PROC: LAPAPPY (ICD-10-PCS; 2018-03-06 17:53)